=== PATIENT | male | born 1955 | race Caucasian/White ===

== ENCOUNTER 2019-08-28 19:01 | Emergency (ER) | payer SELFPAY ==
[~2019-08-28] VITALS: Ht 177.8 cm; Wt 95.3 kg
[2019-08-28 19:07] VITALS: BP 204/107
--- NOTE | 2019-08-28 19:25 | NUR ---
64 Y/O MALE PRESENTS TO ER WITH C/O NAUSEA, HEADACHE X 1 HR. 10/10 PAIN. PT STATED HE TOOK THREE 81MG ASPIRIN 20 MIN AGO, ALONG WITH PENICILLIN HE RECEIVED FROM [place]. PT STATES HE HAS STOMACH PAIN IN THE RIGHT UPPER QUADRANT. DENIES VOMITING, DIARRHEA. STATES HEADACHE IS LOCATED IN THE LEFT FRONTAL AREA OF FOREHEAD. STATES HE STOPPED TAKING BP MEDS AND STARTED GOING TO THE GYM WHICH RELIEVED BP ISSUES, HOWEVER SINCE GYM HAS CLOSED AND HE HASN'T HAD ANY PHYSICAL ACTIVITY HTN HAS RETURNED. R/R EQUAL, AND UNLABORED. SIDERAIL X 1, WILL CONTINUE TO MONITOR NKDA HX: HTN; ENVIRONMENTAL ALLERGIES
--- NOTE | 2019-08-28 19:29 | NUR ---
Dr. Gonzalez examining patient.
[2019-08-28] MEDS ORDERED: KETOROLAC 60 MG/2 ML VIAL IM ONE (19:40)
[2019-08-28] MEDS ORDERED: LORazepam 1 MG TAB PO ONE (19:40)
[2019-08-28] MEDS ORDERED: ONDANSETRON 4 MG ODT PO ONE (19:40)
[2019-08-28 21:00] VITALS: BP 128/81
--- NOTE | 2019-08-28 21:02 | NUR ---
Note lv in EDM - 08/28/19 at 2106 by [email or web address] PT FOR D/C PER DR REJI SCHULZ. ACI GIVEN TO THE PT AND PT VERBALIZES UNDERSTANDING. PT NO OTHER CONCERNS NOTED. HE IS AAOX4 AND WALKS IN STEADY GAIT. PT D/C. PT JANUARY SPENCER MADE AWARE OF THE PT D/C.
--- NOTE | 2019-08-28 21:06 | NUR ---
Patient discharged with v/s stable. Written and verbal after care instructions given and explained to patient and he did verbalizes understanding. Pt toothache 0/10. Ambulatorysteady gait. All questions addressed prior to discharge. Advised to follow up with PMD and take the medications as pecribed by Dr Gonzalez. Pt primary RN Leonardo d/c the pt.
== END 2019-08-28 21:06 | disposition home or self-care (01) ==
LOC: MED 19:01
DX: J32.9 Chronic sinusitis, unspecified (principal); I10 Essential (primary) hypertension
CPT/HCPCS: 96372; 99283; J1885; Q0162

== ENCOUNTER 2019-11-30 16:13 | Emergency (ER) | payer SELFPAY ==
[~2019-11-30] VITALS: Ht 177.8 cm; Wt 92.5 kg
[2019-11-30 16:18] VITALS: BP 187/113
[2019-11-30] MEDS ORDERED: LABETALOL 100 MG/20 ML VIAL IVP ONE (16:40)
[2019-11-30 17:59] LABS: BASOPHILS % (AUTO) 0.3 % (0.0-2.0); EOSINOPHILS % (AUTO) 0.2 % (0.0-4.0); LYMPHOCYTES # (AUTO) 1.5 K/uL (2.0-11.5); LYMPHOCYTES % (AUTO) 27.1 % (20.5-51.1); MEAN CORPUSCULAR HEMOGLOBIN 31 pg (27-31); MEAN CORPUSCULAR HGB CONC 33 g/dL (33-37); MONOCYTES # (AUTO) 0.4 K/uL (0.8-1.0); MONOCYTES % (AUTO) 7.5 % (1.7-9.3); NEUTROPHILS # (AUTO) 3.7 K/uL (1.8-7.7); NEUTROPHILS % (AUTO) 64.9 % (42.2-75.2); PLATELET COUNT (AUTO) 202 K/uL (140-450); RED BLOOD CELL COUNT(AUTO) 4.78 MIL/uL (4.20-6.10); RED CELL DISTRIBUTION WIDTH 13.4 % (11.6-13.7); WHITE BLOOD COUNT (AUTO) 5.6 K/uL (4.8-10.8)
[2019-11-30 18:08] LABS: C-REACTIVE PROTEIN QUANT 0.5 mg/dL (0.0-0.9)
[2019-11-30 18:12] LABS: APPEARANCE,URINE CLEAR (CLEAR); BILIRUBIN,URINE NEGATIVE (NEGATIVE); BLOOD, URINE NEGATIVE (NEGATIVE); LEUKOCYTE ESTERASE ,URINE NEGATIVE (NEGATIVE); NITRITE, URINE NEGATIVE (NEGATIVE); PH,URINE 5.5 (5.0-9.0); UGLUCOSE NEGATIVE (NEGATIVE)
[2019-11-30 18:14] LABS: ALBUMIN 4.3 g/dL (3.4-5.0); ANION GAP 18.5 (8-16); CARBON DIOXIDE 21.9 mmol/L (21-32); CREATININE 1.2 mg/dL (0.6-1.3); POTASSIUM 3.4 mmol/L (3.5-5.1); TOTAL BILIRUBIN 0.6 mg/dL (0.0-1.0)
[2019-11-30 18:14] LABS: COLOR,URINE YELLOW (YELLOW)
[2019-11-30 18:22] LABS: RSV NEGATIVE (NEGATIVE)
[2019-11-30 18:32] LABS: LACTATE DEHYDROGENASE 182 U/L (85-227); LIPASE 161 U/L (73-393)
[2019-11-30 19:09] VITALS: BP 132/72
== END 2019-11-30 19:09 | disposition home or self-care (01) ==
LOC: MED 16:13
DX: R10.9 Unspecified abdominal pain (principal); Z20.828 Contact with and (suspected) exposure to other viral communicable diseases; I10 Essential (primary) hypertension
CPT/HCPCS: 71045; 74176; 80053; 81003; 82550; 82728; 83605; 83615; 83690; 83880; 84484; 85025; 86140; 87420; 87804; 93005; 96374; 99285; J3490; Q0092; U0003